=== PATIENT | female | born 2000 | race Asian ===

== ENCOUNTER 2025-04-28 00:03 | Emergency (ER) | payer OTHER ==
[~2025-04-28] VITALS: Ht 162.6 cm; Wt 42.0 kg
[2025-04-28 00:20] VITALS: TEMP 36.9; O2SAT 98
[2025-04-28] MEDS: FLUORESCEIN SODIUM 1MG/STRIP LEFTEYE ONE (00:45)
[2025-04-28] MEDS: TETRACAINE 0.5% OPHTH DROPS 4ML LEFTEYE ONE (00:45)
[2025-04-28 01:30] LABS: BASOPHILS % 0.8 % (0.0-2.0); EOSINOPHILS % 0.7 % (0.0-5.0); HEMATOCRIT. 39.2 % (36.0-48.0); HEMOGLOBIN. 13.1 g/dL (12.0-16.0); LYMPHOCYTES % 30.7 % (20.0-50.0); MEAN PLATELET VOLUME 6.4 fl (7.4-10.4); MONOCYTES % 8.4 % (2.0-8.0); NEUTROPHILS % 59.4 % (40.0-76.0); PLATELET 194 x1000/uL (130-400); RED BLOOD CELL COUNT 4.11 mill/uL (4.2-5.4); RED CELL DISTRIBUTION WIDTH 13.0 % (11.6-14.6)
[2025-04-28] MEDS: KETOROLAC 15MG/ML VIAL IM ONE (01:30)
[2025-04-28 01:50] LABS: CREATININE 0.9 mg/dL (0.6-1.0); UREA NITROGEN BLOOD 14 mg/dL (9-23)
[2025-04-28 02:17] LABS: CLARITY URINE CLEAR (CLEAR); COLOR URINE YELLOW (YELLOW); GLUCOSE URINE NEGATIVE (NEGATIVE); KETONES URINE TRACE (NEGATIVE); LEUKOCYTE ESTERASE URINE NEGATIVE (NEGATIVE); NITRITE URINE NEGATIVE (NEGATIVE); OCCULT BLOOD URINE NEGATIVE (NEGATIVE); PH URINE 6.5 (4.5-8.0); PROTEIN URINE NEGATIVE (NEGATIVE); SPECIFIC GRAVITY URINE 1.017 (1.005-1.030); UROBILINOGEN URINE 1.0 E.U./dL (0.2-1.0)
[2025-04-28 02:30] LABS: HCG SCREEN NEGATIVE
[2025-04-28] MEDS: IOHEXOL-350 100 ML BOTTLE ONE (03:38)
[2025-04-28 04:22] VITALS: BP 106/77; PULSE 62; RESP 16; O2SAT 100
== END 2025-04-28 04:24 | disposition home or self-care (01) ==
LOC: ER 00:03
DX: H54.62 Unqualified visual loss, left eye, normal vision right eye (principal); Z98.890 Other specified postprocedural states
CPT/HCPCS: 80048; 81003; 81025; 84703; 85025; 85651; 36415; 70496; 70498; 99285; Q9967; Z7610 ×2; J1885